=== PATIENT | female | born 1980 | race Caucasian/White ===

== ENCOUNTER 2017-01-17 20:54 | Observation (INO) | payer MEDICARE ==
[~2017-01-17] VITALS: Ht 160 cm; Wt 69.0 kg
[2017-01-17] MEDS ORDERED: ZIPRASIDONE 20 MG INJ IM ONE ×2 (21:32→22:00)
[2017-01-17] MEDS ORDERED: LORazepam 2 MG/ML, 1ML ONE (21:39)
[2017-01-17] MEDS ORDERED: LORazepam 2 MG/ML, 1ML IM ONE (22:00)
[2017-01-17 22:25] LABS: ASPARTATE AMINO TRANSFERASE 35 U/L (15-37); BLOOD UREA NITROGEN 18 mg/dL (7-18)
[2017-01-17 22:28] LABS: ACETAMINOPHEN 3 mcg/mL (10-30)
[2017-01-17 23:34] LABS: DAU SCREEN DISCLAIMER
[2017-01-18] MEDS ORDERED: ACETAMINOPHEN 325 MG TABLET PO PRN (00:30)
[2017-01-18] MEDS ORDERED: ENOXAPARIN 40 MG/0.4 ML SQ SCH (00:30)
[2017-01-18] MEDS ORDERED: ZIPRASIDONE 20 MG INJ IM PRN (00:30)
[2017-01-18 01:08] VITALS: BP 99/62
[2017-01-18 07:40] VITALS: BP 104/64
[2017-01-18] MEDS: POTASSIUM CHLORIDE 20 MEQ TAB.ER.PRT PO SCH ×2 (08:00→17:27)
[2017-01-18 14:00] VITALS: BP 107/71
[2017-01-18] MEDS ORDERED: ZIPRASIDONE 20 MG INJ IM ONE (14:00)
[2017-01-18] MEDS ORDERED: POTASSIUM CHLORIDE 20 MEQ in SODIUM CHLORIDE 0.9% 250 ML IV ONE (18:00)
[2017-01-18 23:26] VITALS: BP 119/82
[2017-01-19 04:09] VITALS: BP 109/62
[2017-01-19 05:32] LABS: BLOOD UREA NITROGEN 15 mg/dL (7-18)
[2017-01-19] MEDS: ENOXAPARIN 40 MG/0.4 ML SQ SCH (07:00)
[2017-01-19 09:04] VITALS: BP 130/83
[2017-01-19] MEDS ORDERED: HALOPERIDOL 1 MG TABLET PO PRN ×2 (11:00→12:30)
[2017-01-19 13:44] VITALS: BP 39/87
[2017-01-19 19:48] VITALS: BP 138/98
[2017-01-20 02:39] VITALS: BP 135/85
[2017-01-20] MEDS: ENOXAPARIN 40 MG/0.4 ML SQ SCH (07:00)
[2017-01-20 09:06] VITALS: BP 119/82
[2017-01-20] MEDS: HALOPERIDOL 5 MG/ML IM PRN ×2 (13:40→13:59)
== END 2017-01-20 15:08 ==
LOC: ED 21:44 → EDIP 01-18 00:02 → 3E 01-18 00:36 → 4EST 01-18 02:50 → 4NOR 01-18 21:45
DX: F22 Delusional disorders (principal); F31.9 Bipolar disorder, unspecified; F41.1 Generalized anxiety disorder; E87.6 Hypokalemia; Z91.19 Patient's noncompliance with other medical treatment and regimen; Z78.1 Physical restraint status
CPT/HCPCS: 36415; 80048; 80053; 80307; 80329; 84703; 85025; 96365; 96366; 96372; 99285; G0378; J1630; J2060; J3480; J3486; J7050; G0480

== ENCOUNTER 2021-05-10 06:33 | Emergency (ER) | payer MEDICARE, OTHER ==
[~2021-05-10] VITALS: Ht 167.6 cm; Wt 72.7 kg
[2021-05-10] MEDS ORDERED: SODIUM CHLORIDE 0.9% 1,000ML IVBOLUS ONE (07:00)
--- NOTE | 2021-05-10 07:39 | NUR ---
CT DELAY; HAVE TO DO CODE NEURO THEN ANOTHER ER BEFORE THIS ONE, ONE TECH
[2021-05-10 07:42] LABS: BASOPHILS % (AUTO) 1 % (0-1); EOSINOPHILS % (AUTO) 1 % (1-7); LYMPHOCYTES % (AUTO) 20 % (22-44); MEAN CORPUSCULAR HEMOGLOBIN 33.1 pg (27.0-34.8); MEAN CORPUSCULAR HGB CONC 34.1 g/dL (32.4-35.8); MEAN PLATELET VOLUME 8.3 fL (7.4-10.4); MONOCYTES % (AUTO) 8 % (2-9); NEUTROPHILS % (AUTO) 70 % (42-75); PLATELET COUNT 247 x10^3/uL (130-400); RED BLOOD COUNT 4.22 x10^6/uL (3.82-5.3); RED CELL DISTRIBUTION WIDTH 12.9 % (9.6-15.2)
[2021-05-10 07:49] LABS: ALBUMIN 3.3 g/dL (3.4-5.0); ANION GAP 8 mmol/L (5-15); CALCIUM 8.5 mg/dL (8.5-10.1); CHLORIDE 109 mmol/L (98-107)
--- NOTE | 2021-05-10 07:52 | NUR ---
PT BIB EMS AFTER BEING FOUND RESPONSIVE AT THE RESIDENTIAL. PT AWAKE BUT NOT RESPONDING TO COMMANDS AND NOT SPEAKING. PT SITTING UP ON HER OWN WITH OCCASIONAL EYE OPENING.
[2021-05-10 07:55] LABS: ALANINE AMINOTRANSFERASE 14 U/L (12-78); ALKALINE PHOSPHATASE 93 U/L (45-117); BILIRUBIN,TOTAL 0.9 mg/dL (0.2-1.0); CREATININE 0.69 mg/dL (0.55-1.02); TOTAL PROTEIN 6.5 g/dL (6.4-8.2)
[2021-05-10 07:58] LABS: SALICYLATE LEVEL < 1.7 mg/dL (2.8-20.0)
[2021-05-10] MEDS ORDERED: PLEASE ENTER HEIGHT AND WEIGHT MC SCH (08:30)
--- NOTE | 2021-05-10 09:30 | NUR ---
PT AWAKE AND TALKING AT THIS TIME. PT REQUESTING TO GO THE BATHROOM AND TO EAT SOMETHING. PT GIVEN URINE CUP WITH INSTRUCTIONS ON HOW TO OBTAIN A CLEAN SAMPLE. PT AMBULATED TO BATHROOM WITH [facility] GUARD BEDSIDE.
[2021-05-10 10:08] LABS: AMPHETAMINE SCREEN, URINE Negative (Negative); BARBITURATE SCREEN, URINE Negative (Negative); BENZODIAZEPINE SCREEN, URINE Negative (Negative); CANNABINOID SCREEN, URINE Negative (Negative); COCAINE SCREEN, URINE Negative (Negative); METHADONE SCREEN, URINE Negative (Negative); OPIATE SCREEN, URINE Negative (Negative)
--- NOTE | 2021-05-10 10:40 | NUR ---
PT PROVIDED SANDWICH AND APPLE JUICE AFTER DYSPHAGIA/SWALLOW SCREEN.
--- NOTE | 2021-05-10 12:44 | NUR ---
PSYCH RISK MODELER BEDSIDE
[2021-05-10] MEDS ORDERED: BENZTROPINE 1 MG TABLET ONE (13:23)
[2021-05-10] MEDS ORDERED: RISPERIDONE 2 MG TABLET ONE (13:23)
[2021-05-10] MEDS ORDERED: BENZTROPINE 1 MG TABLET PO ONE (13:30)
[2021-05-10] MEDS ORDERED: HALOPERIDOL 5 MG/ML IM PRN (13:30)
[2021-05-10] MEDS ORDERED: RISPERIDONE 1 MG TABLET PO ONE (13:30)
[2021-05-10 14:00] VITALS: BP 121/80
--- NOTE | 2021-05-10 14:00 | NUR ---
RECEIVED REPORT FROM REJI. PT UPRIGHT ON GURNEY AWAKE & WACHING TV, FLAT AFFECT DURING INTERACTIONS, REFUSED PO & IM MEDS- DR LUNDY & PSYCH [facility] BOSS (EDDA) AWARE, NAD, NO NEEDS AT THIS TIME, [facility] AT BS, CALL LIGHT WITHIN REACH.
--- NOTE | 2021-05-10 14:35 | NUR ---
Patient & [facility] given discharge instructions and Rx, they have confirmed that they understand the instructions. Patient ambulatory with steady gait.
== END 2021-05-10 14:36 ==
LOC: ED 07:37
DX: F23 Brief psychotic disorder (principal); F22 Delusional disorders; R41.82 Altered mental status, unspecified
CPT/HCPCS: 36415; 70450; 80053; 80299; 80307; 80320; 84443; 84703; 85025; 96360; 99284; J7030; 80329; G0480